=== PATIENT | male | born 1945 | race Caucasian/White ===

== ENCOUNTER 2021-12-30 14:45 | Inpatient (IN) ==
--- NOTE | 2021-12-30 15:13 | Emergency Department Note ---
SOB HPI General Chief Complaint: Shortness of Breath/Dyspnea Stated Complaint: shortness of breath Time Seen by Provider: 12/30/21 14:50 Source: patient Mode of arrival: wheelchair Limitations: no limitations History of Present Illness HPI Narrative: 76-year-old male who is a resident at [facility] with history of postpolio syndrome, chronic thoracic back pain, GERD, HTN, HLD, BPH, and adrenal insufficiency on chronic fludrocortisone presents today for increased anxiety and shortness of breath. He went to express care and was noted to be tachypneic, so was sent to the ER for evaluation. He is a poor historian and I obtained some of his history from his nursing care facility. Staff notes that he has been more anxious than usual over the last 4 weeks with increased agitation. Today's saturations are noted to be 91% on room air. He is nonambulatory and uses an electric wheelchair. Nursing states that he has been transferring independently without issue. He has not been tested for COVID as they do not check regularly unless patient's symptomatic. Kehinde ALEGRIA DNR. Patient denies F/C/S. Denies dysuria. Has chronic constipation which is unchanged. He notes that he feels more short of breath when laying flat, just feels like he cannot get air. His sister is at the bedside notes that he appears weaker. Related Data Home Medications Medication Instructions Recorded Confirmed aspirin 81 mg tablet,delayed 81 mg PO QDAY 06/22/15 10/24/20 release ferrous sulfate 325 mg (65 mg 325 mg PO .once daily 06/22/15 10/24/20 iron) tablet methocarbamol 750 mg tablet 1 tab PO BID PRN Pain 12/30/21 12/30/21 [id number] 250 mg-dha 90 1 cap PO DAILY 12/30/21 12/30/21 mg-epa 160 [id number] capsule (Ocuvite Adult 50 Plus) sennosides 8.6 mg tablet (Senokot) 1 tab PO DAILY PRN Constipation 12/30/21 12/30/21 vitamin B complex 1 tab PO QAM 12/30/21 12/30/21 Previous Rx's Medication Instructions Recorded Lift Chair #1 ea 10/14/16 diclofenac sodium 1 % topical gel See Rx Instructions topical 03/06/17 (Voltaren) .COMPLEX PRN pain #100 grams shower chair with adjustable legs #1 ea 10/22/17 wheelchair #1 ea 10/22/17 esomeprazole magnesium 40 mg See Dose Instructions PO .COMPLEX 11/09/17 capsule,delayed release #90 caps dutasteride 0.5 mg capsule 0.5 mg PO QDAY #90 caps 11/12/17 cholecalciferol (vitamin D3) 50 2,000 unit PO BID #180 caps 11/25/17 mcg (2,000 unit) capsule celecoxib 200 mg capsule 200 mg PO QDAY #90 caps 12/10/17 amlodipine 10 mg-benazepril 40 mg 1 cap PO QDAY #90 caps 12/21/17 capsule metoprolol succinate 100 mg 100 mg PO QDAY #90 tabs 12/21/17 tablet,extended release 24 hr trazodone 50 mg tablet 25 mg PO QHS #15 tabs 01/06/18 fludrocortisone 0.1 mg tablet 0.2 mg PO QDAY #180 tabs 05/20/18 hydrocodone 7.5 mg-acetaminophen 1 tab PO Q6H PRN pain #120 tabs 05/20/18 325 mg tablet cyclobenzaprine 10 mg tablet 10 mg PO TID PRN muscle spasm #15 10/12/20 tabs Allergies Allergy/AdvReac Type Severity Reaction Status Date / Time aripiprazole [From [facility]] AdvReac Unknown Unknown Verified 12/30/21 14:48 Review of Systems ROS ROS Narrative: Narrative: All systems ED: reviewed and negative except as stated. [facility] Narrative Patient History Narrative: Narrative: Medical/Surgical/Family History All Active Problems (Updated 12/30/21 @ 18:21 by Irais Vazquez PA-C) Acute hypokalemia (Acute) Acute hyponatremia (Acute) Weakness (Acute) Hypokalemia (Acute) Hyponatremia (Acute) Hypercapnic respiratory failure (Acute) Osteoporosis (Chronic) Thoracic back pain (Acute) Low back pain (Acute) Difficulty walking (Chronic) Arthritis (Chronic) Emphysema lung (Chronic) Osteoarthritis (Chronic) Gastritis (Chronic) GERD without esophagitis (Chronic) Chronic pain (Chronic) Post-polio syndrome (Chronic) Vitamin D deficiency (Chronic) Other specified disorders of adrenal glands (Chronic) Iron deficiency anemia (Chronic) Insomnia (Chronic) Macular degeneration (Chronic) COVID-19 (Chronic ~03/31/20) Fall (Chronic) Compression fracture (Chronic) Back pain (Chronic) Abnormal laboratory test (Chronic) Acute thoracic myofascial strain (Chronic) Constipation (Chronic) Onychomycosis (Chronic) Scoliosis (Chronic) Osteoarthrosis, generalized, involving multiple sites (Chronic) Hypertension, essential (Chronic) Hyperlipidemia (Chronic) Gastritis, alcoholic (Chronic) Benign prostatic hypertrophy with lower urinary tract symptoms (LUTS) (Chronic) 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) Adrenal gland disorder (Chronic) Medical History Adrenal gland disorder Arthritis Back pain Benign prostatic hypertrophy with lower urinary tract symptoms (LUTS) Chronic pain Compression fracture COVID-19 (~03/31/20) Difficulty walking Emphysema lung Fall Gastritis Gastritis, alcoholic GERD without esophagitis Hyperlipidemia Hypertension, essential Insomnia Iron deficiency anemia Iron deficiency anemia secondary to blood loss (chronic) Low back pain Macular degeneration Onychomycosis Osteoarthritis Osteoarthrosis, generalized, involving multiple sites Osteoporosis Other specified disorders of adrenal glands Post-polio limb muscle weakness Post-polio syndrome Scoliosis Thoracic back pain Vitamin D deficiency Surgical History History of left hip replacement Hx of spinal fusion thoracic Family History Aunt Malignant neoplasm of lung Family history of cardiac disorder Mother Family history of cardiac disorder Dementia, Onset Age: 58 cascular Hypertension Brother Degeneration of intervertebral disc Other Essential hypertension Social History Smoking Status: Former smoker Alcohol Intake Frequency: holiday/special occasion only Substance Use: does not use Exam Narrative Narrative: Narrative: General Limitations: no limitations Course Course Course Narrative: 76-year-old male presents for shortness of breath and weakness Reevaluation(s) Reevaluation #1: Obtain basic labs, chest x-ray, EKG Check COVID and influenza Reevaluation #2: Chem-8 with a potassium less than 2.0. Sodium is 124. No leukocytosis on his CBC. Chest x-ray negative with baseline chronic findings. COVID and influenza are negative Vital Signs Vital signs: Vital Signs Temperature 97.0 F 12/30/21 14:46 Pulse Rate 92 H 12/30/21 14:46 Respiratory Rate 20 12/30/21 14:46 Blood Pressure 133/78 12/30/21 14:46 Pulse Oximetry (%) 98 12/30/21 14:46 Oxygen Delivery Method 12/30/21 14:46 Temperature 97.0 F 12/30/21 14:46 Pulse Rate 88 12/30/21 17:35 Respiratory Rate 29 H 12/30/21 17:35 Blood Pressure 135/101 12/30/21 17:31 Pulse Oximetry (%) 94 12/30/21 17:35 Oxygen Delivery Method 12/30/21 14:46 MDM MDM Narrative Medical decision making narrative: Hypokalemia Hyponatremia Weakness Shortness of breath I reached out to hospitalist for admission. We will give his scheduled hydrocodone dose now. He is received 40 mEq of IV potassium and 40 mEQ of oral potassium, as well as 1 L of normal saline prior to admission. Lab Data Result diagrams: 12/30/21 15:27 Labs: Lab Results 12/30/21 12/30/21 12/30/21 Range/Units 15:27 16:44 16:50 WBC 9.6 (4.5-11.0) K/mcL RBC 4.52 L (4.63-6.08) M/mcL Hgb 14.8 (13.7-17.5) g/dL Hct 40.2 (40.1-51.0) % POC Hct 45.0 (41-55) MCV 88.9 (80.0-100.0) fL MCH 32.7 (26.0-34.0) pg MCHC 36.8 H (31.0-36.0) g/dL RDW 11.5 (11.5-14.5) % Plt Count 246 (140-440) K/mcL MPV 8.8 (7.4-10.4) fL Immature Gran % (Auto) 0.3 (0.0-0.5) % Neut % (Auto) 75.9 (38.0-78.0) % Lymph % (Auto) 14.5 L (15.5-49.0) % Love % (Auto) 8.1 (1.0-12.0) % Eos % (Auto) 0.8 (0.0-7.0) % Baso % (Auto) 0.4 (0.0-2.0) % Lymph # (Auto) 1.39 L (1.50-4.80) K/mcL Love # (Auto) 0.78 (0.10-0.90) K/mcL Eos # (Auto) 0.08 (0.00-0.70) K/mcL Baso # (Auto) 0.04 (0.00-0.30) K/mcL Immature Gran # 0.03 (0.00-0.05) K/mcl Absolute Neutrophils 7.29 (1.80-8.00) K/mcL POC VBG pH 7.58 H (7.32-7.42) POC VBG pCO2 at Temp 62.3 H* (41-51) POC VBG pO2 54 H (25-40) POC VBG HCO3 58.2 H* (24-28) POC VBG Total CO2 > 50.0 H* (25-29) POC Venous O2 Sat 90.0 H (40-70) POC VBG Base Excess > 30.0 H* (-2-2) VBG Lactic Acid 0.9 (0.5-2) POC Sodium 124 L (133-145) POC Potassium < 2.0 L* (3.3-5.1) POC Chloride 66 L (96-108) POC Total CO2 > 50.0 H* (22-30) POC BUN 8 (6-20) POC Creatinine 0.4 L (0.6-1.2) POC Glucose 112 H (70-105) POC WB Ioniz Calcium 1.00 L (1.16-1.32) ED POC Tests ED POC Tests: SAVANNAH - Influenza A Negative SAVANNAH - Influenza B Negative SAVANNAH - SARS Antigen Negative Discharge Plan Patient/Caregiver Discharge Instructions Pt seen by BAND DIRECTOR/PA only: Yes Clinical Impression: Acute hypokalemia, Acute hyponatremia, Weakness Patient Disposition: Xfer As Inpt ([facility]) Condition: Fair Follow up with: Antolin Young MD [Primary Care Provider] - Prescriptions: No Action diclofenac sodium [Voltaren] 1 % gel See Rx Instructions TOPICAL .COMPLEX PRN (Reason: pain) Qty: 100 12RF Dose Instruction: Apply TOPICAL BID PRN; apply to single elbow, wrist or hand; gently massage into area; for hand includes palm/fingers/back of hand Rx Instructions: Apply TOPICAL BID PRN. (DME) wheelchair device See Dose Instructions .ROUTE .MEDSUPPLY Qty: 1 0RF Dose Instruction: As directed Rx Instructions: use daily for ambulation (DME) shower chair with adjustable legs Qty: 1 0RF Dose Instruction: As directed Rx Instructions: for use in shower to ensure proper hygiene is achieved esomeprazole magnesium 40 mg capsule,delayed release(DR/EC) See Dose Instructions PO .COMPLEX Qty: 90 3RF Dose Instruction: Take one capsule PO once daily Rx Instructions: Take one capsule PO once daily dutasteride 0.5 mg capsule 0.5 mg PO QDAY Qty: 90 3RF cholecalciferol (vitamin D3) 2,000 unit capsule 2,000 unit PO BID Qty: 180 3RF Rx Instructions: administer with meals celecoxib 200 mg capsule 200 mg PO QDAY Qty: 90 3RF amlodipine-benazepril 10-40 mg capsule 1 cap PO QDAY Qty: 90 3RF metoprolol succinate 100 mg tablet extended release 24 hr 100 mg PO QDAY Qty: 90 3RF trazodone 50 mg tablet 25 mg PO QHS Qty: 15 12RF hydrocodone-acetaminophen 7.5-325 mg tablet 1 tab PO Q6H PRN (Reason: pain) Qty: 120 0RF fludrocortisone 0.1 mg tablet 0.2 mg PO QDAY Qty: 180 0RF aspirin 81 mg tablet,delayed release (DR/EC) 81 mg PO QDAY ferrous sulfate 325 mg (65 mg iron) tablet 325 mg PO .once daily Rx Instructions: 325 mg PO .once daily (DME) Lift Chair Qty: 1 0RF Rx Instructions: use to be able to rise from seated position cyclobenzaprine 10 mg tablet 10 mg PO TID PRN (Reason: muscle spasm) Qty: 15 0RF sennosides [Senokot] 8.6 mg tablet 1 tab PO DAILY PRN (Reason: Constipation) Label Comments: [NO ORIGINAL SIG] methocarbamol 750 mg tablet 1 tab PO BID PRN (Reason: Pain) Label Comments: [NO ORIGINAL SIG] vitamin B complex Tablet 1 tab PO QAM Label Comments: [NO ORIGINAL SIG] Ocuvite Adult 50 Plus 250 mg (90 mg-160 mg) capsule 1 cap PO DAILY Label Comments: [NO ORIGINAL SIG]
[2021-12-30 16:14] LABS: Basophils # (Auto) 0.04 K/mcL (0.00-0.30); Basophils % (Auto) 0.4 % (0.0-2.0); Eosinophils # (Auto) 0.08 K/mcL (0.00-0.70); Eosinophils % (Auto) 0.8 % (0.0-7.0); Hematocrit 40.2 % (40.1-51.0); Hemoglobin 14.8 g/dL (13.7-17.5); Lymphocytes # (Auto) 1.39 K/mcL (1.50-4.80); Lymphocytes % (Auto) 14.5 % (15.5-49.0); Mean Cell Volume 88.9 fL (80.0-100.0); Mean Corpuscular HGB Conc 36.8 g/dL (31.0-36.0); Mean Platelet Volume 8.8 fL (7.4-10.4); Monocytes # (Auto) 0.78 K/mcL (0.10-0.90); Monocytes % (Auto) 8.1 % (1.0-12.0); Neutrophils % (Auto) 75.9 % (38.0-78.0); Platelet Count 246 K/mcL (140-440); RBC 4.52 M/mcL (4.63-6.08); Red Cell Distribution Width 11.5 % (11.5-14.5); WBC 9.6 K/mcL (4.5-11.0)
--- NOTE | 2021-12-30 16:18 | XRay Report ---
CLINICAL INFORMATION: Dyspnea COMPARISON: 03/21/2021. TECHNIQUE: Portable FINDINGS: Severe complex scoliotic curve distorts the thoracic cavity-as previously seen. Moderate hiatal hernia is stable The heart size, remaining mediastinum and pulmonary vessels are unremarkable. The lungs are clear. There are no effusions. The bones and soft tissues are within normal limits. IMPRESSION: No acute disease. Severe complex scoliotic curve severely distorts the thoracic cavity resulting in restrictive lung disease. This is obviously a chronic finding Moderate hiatal hernia Interpreted and Authenticated by: Dayne Olsen 12/30/21
[2021-12-30 16:53] LABS: POC Blood Urea Nitrogen 8 (6-20); POC CO2 > 50.0 (22-30); POC Chloride 66 (96-108); POC Creatinine 0.4 (0.6-1.2); POC Glucose, Random 112 (70-105); POC Potassium < 2.0 (3.3-5.1); POC Sodium 124 (133-145)
[2021-12-30] MEDS ORDERED: 0.9 % SODIUM CHLORIDE 1,000 ML IV ONE (16:55)
[2021-12-30] MEDS ORDERED: POTASSIUM CHLORIDE 40 MEQ in DEXTROSE 5% IN WATER 500 ML IV ONE (16:55)
[2021-12-30] MEDS ORDERED: POTASSIUM CHLORIDE 20 MEQ TABLET PO ONE (16:56)
[2021-12-30] MEDS ORDERED: HYDROCODONE/APAP 7.5/325MG TABLET PO ONE (17:08)
[2021-12-30] MEDS ORDERED: ONDANSETRON 4 MG/2 ML VIAL IV PRN (17:47)
--- NOTE | 2021-12-30 18:13 | Internal Med History&Physical ---
HPI History of Present Illness Patient information: Note initiated : 12/30/21 at 6:05 pm Service Date, if different from initiated Date: [] Patient: Demarcus Bryan 76 y/o M admitted on for shortness of breath. Chief Complaint: [Weakness and abnormal breathing] Chief complaint: Weakness and abnormal breathing History of present illness: Mr. Bryan is a 76 year old M with a complex past medical history significant for severe scoliosis, emphysema, postpolio syndrome who is wheelchair dependent, and adrenal insufficiency who presents to the hospital with generalized weakness and irregular breathing pattern. The patient states that his breathing became worse after he had a fall in September. He has known severe chest wall deformity which is compounded by a known hiatal hernia. A chest x-ray was obtained which did not reveal any infiltrate, mass, or collapse of the lung. The patient is able to oxygenate and his O2 saturation is 98% on room air. Of note he was found to have severe electrolyte deficiencies including hypokalemia with a potassium less than 2 and hyponatremia with a sodium of 124. This was corrected in the ER. The hospitalist service was asked admit the patient for further management and evaluation. Review of Systems All systems: reviewed and no additional remarkable complaints except as stated Constitutional Constitutional: Present as per HPI EENT Eyes: Present as per HPI; Absent blurry vision Cardiovascular Cardiovascular: Present as per HPI; Absent chest pain, dyspnea, dyspnea on exertion, leg edema or palpatations Respiratory Respiratory: Present as per HPI; Absent cough, dyspnea, dyspnea on exertion, wheezing or stridor Gastrointestinal Gastrointestinal: Present as per HPI; Absent abdominal pain, diarrhea, dysphagia, hematemesis, melena, nausea or vomiting Musculoskeletal Musculoskeletal: Present as per HPI; Absent joint swelling, limited range of motion, muscle cramps, muscle weakness or myalgias Integumentary Integumentary: Present as per HPI; Absent erythema, new lesions, rash or wounds Neurological Neurological: Present as per HPI; Absent abnormal gait, behavioral changes, focal weakness, headache(s), loss of vision, numbness, sensory deficit or syncope Endocrine Endocrine: Absent change in body appearance, fatigue or heat intolerance Hematologic/Lymphatic Hematologic/Lymphatic: Present as per HPI PFSH PFSH All Active Problems (Updated 12/30/21 @ 18:09 by Daria Hankins MD) Hypokalemia (Acute) Hyponatremia (Acute) Hypercapnic respiratory failure (Acute) Osteoporosis (Chronic) Thoracic back pain (Acute) Low back pain (Acute) Difficulty walking (Chronic) Arthritis (Chronic) Emphysema lung (Chronic) Osteoarthritis (Chronic) Gastritis (Chronic) GERD without esophagitis (Chronic) Chronic pain (Chronic) Post-polio syndrome (Chronic) Vitamin D deficiency (Chronic) Other specified disorders of adrenal glands (Chronic) Iron deficiency anemia (Chronic) Insomnia (Chronic) Macular degeneration (Chronic) COVID-19 (Chronic ~03/31/20) Fall (Chronic) Compression fracture (Chronic) Back pain (Chronic) Abnormal laboratory test (Chronic) Acute thoracic myofascial strain (Chronic) Constipation (Chronic) Onychomycosis (Chronic) Scoliosis (Chronic) Osteoarthrosis, generalized, involving multiple sites (Chronic) Hypertension, essential (Chronic) Hyperlipidemia (Chronic) Gastritis, alcoholic (Chronic) Benign prostatic hypertrophy with lower urinary tract symptoms (LUTS) (Chronic) 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) Adrenal gland disorder (Chronic) Medical History Adrenal gland disorder Arthritis Back pain Benign prostatic hypertrophy with lower urinary tract symptoms (LUTS) Chronic pain Compression fracture COVID-19 (~03/31/20) Difficulty walking Emphysema lung Fall Gastritis Gastritis, alcoholic GERD without esophagitis Hyperlipidemia Hypertension, essential Insomnia Iron deficiency anemia Iron deficiency anemia secondary to blood loss (chronic) Low back pain Macular degeneration Onychomycosis Osteoarthritis Osteoarthrosis, generalized, involving multiple sites Osteoporosis Other specified disorders of adrenal glands Post-polio limb muscle weakness Post-polio syndrome Scoliosis Thoracic back pain Vitamin D deficiency Surgical History History of left hip replacement Hx of spinal fusion thoracic Family History Aunt Malignant neoplasm of lung Family history of cardiac disorder Mother Family history of cardiac disorder Dementia, Onset Age: 58 cascular Hypertension Brother Degeneration of intervertebral disc Other Essential hypertension Social History (Updated 10/25/20 @ 12:13 by Shannan Webster) marital status: single education level: college occupational status: employed occupation: [employer] Worker smoking status: Never smoker alcohol intake frequency: holiday/special occasion only substance use type: does not use MEDS/ALLERGIES Home Medications and Allergies Home Medications Medication Instructions Recorded Confirmed Type aspirin 81 mg tablet,delayed 81 mg PO QDAY 06/22/15 10/24/20 History release ferrous sulfate 325 mg (65 mg 325 mg PO .once daily 06/22/15 10/24/20 History iron) tablet terbinafine HCl 250 mg tablet 250 mg PO QDAY #42 tabs 06/22/15 10/24/20 Rx Lift Chair #1 ea 10/14/16 10/24/20 Rx diclofenac sodium 1 % topical gel See Rx Instructions topical 03/06/17 10/24/20 Rx (Voltaren) .COMPLEX PRN pain #100 grams shower chair with adjustable legs #1 ea 10/22/17 10/24/20 Rx wheelchair #1 ea 10/22/17 10/24/20 Rx esomeprazole magnesium 40 mg See Dose Instructions PO .COMPLEX 11/09/17 10/24/20 Rx capsule,delayed release #90 caps dutasteride 0.5 mg capsule 0.5 mg PO QDAY #90 caps 11/12/17 10/24/20 Rx cholecalciferol (vitamin D3) 50 2,000 unit PO BID #180 caps 11/25/17 10/24/20 Rx mcg (2,000 unit) capsule celecoxib 200 mg capsule 200 mg PO QDAY #90 caps 12/10/17 10/24/20 Rx amlodipine 10 mg-benazepril 40 mg 1 cap PO QDAY #90 caps 12/21/17 10/24/20 Rx capsule metoprolol succinate 100 mg 100 mg PO QDAY #90 tabs 12/21/17 10/24/20 Rx tablet,extended release 24 hr triamterene 37.5 1 tab PO QDAY #90 tabs 12/21/17 10/24/20 Rx mg-hydrochlorothiazide 25 mg tablet trazodone 50 mg tablet 25 mg PO QHS #15 tabs 01/06/18 10/24/20 Rx lisinopril 20 mg tablet 20 mg PO QDAY #90 tabs 01/14/18 10/24/20 Rx prednisone 1 mg tablet 2 mg PO QDAY #60 tabs 04/30/18 10/24/20 Rx fludrocortisone 0.1 mg tablet 0.2 mg PO QDAY #180 tabs 05/20/18 10/24/20 Rx hydrocodone 7.5 mg-acetaminophen 1 tab PO Q6H PRN pain #120 tabs 05/20/18 10/24/20 Rx 325 mg tablet cyclobenzaprine 10 mg tablet 10 mg PO TID PRN muscle spasm #15 10/12/20 10/24/20 Rx tabs Allergies Allergy/AdvReac Type Severity Reaction Status Date / Time aripiprazole [From [facility]] AdvReac Unknown Unknown Verified 12/30/21 14:48 EXAM Constitutional Vitals: Temp Pulse Resp BP Pulse Ox O2 Del Method 97.0 F 88 29 H 135/101 94 12/30/21 14:46 12/30/21 17:35 12/30/21 17:35 12/30/21 17:31 12/30/21 17:35 12/30/21 14:46 General appearance: average body habitus Head Head exam: Present atraumatic, normal inspection and normocephalic Eye Eye exam: Present EOMI, normal appearance and PERRL; Absent conjunctival injection ENT ENT exam: Present normal exam; Absent mucous membranes dry Neck Neck exam: Present full ROM; Absent lymphadenopathy Respiratory Respiratory exam: Present accessory muscle use and decreased breath sounds; A bsent normal respiratory exam, CTAB, respiratory distress or wheezes Expanded Respiratory Exam Location: decreased breath sounds: Left and Right Cardiovascular Cardiovascular exam: Present normal rate and rhythm and RRR; Absent JVD GI/Abdominal GI/Abdominal exam: Present normal bowel sounds and soft; Absent diminished bowel sounds, distended, guarding, mass, rebound or tenderness Neurological Exam Neurological exam: Present alert, CN II-XII intact and oriented X3 Psychiatric Psychiatric exam: Present normal affect and normal mood Skin Skin exam: Present intact and warm; Absent erythema, pallor, petechiae or rash DATA Data Completed and Pending Labs: Labs from last 24 hours 12/30/21 12/30/21 12/30/21 16:50 16:44 15:27 WBC 9.6 RBC 4.52 L Hgb 14.8 Hct 40.2 POC Hct 45.0 MCV 88.9 MCH 32.7 MCHC 36.8 H RDW 11.5 Plt Count 246 MPV 8.8 Immature Gran % (Auto) 0.3 Neut % (Auto) 75.9 Lymph % (Auto) 14.5 L Wise % (Auto) 8.1 Eos % (Auto) 0.8 Baso % (Auto) 0.4 Lymph # (Auto) 1.39 L Wise # (Auto) 0.78 Eos # (Auto) 0.08 Baso # (Auto) 0.04 Immature Gran # 0.03 Absolute Neutrophils 7.29 POC VBG pH 7.58 H POC VBG pCO2 at Temp 62.3 H* POC VBG pO2 54 H POC VBG HCO3 58.2 H* POC VBG Total CO2 > 50.0 H* POC Venous O2 Sat 90.0 H POC VBG Base Excess > 30.0 H* VBG Lactic Acid 0.9 POC Sodium 124 L POC Potassium < 2.0 L* POC Chloride 66 L POC Total CO2 > 50.0 H* POC BUN 8 POC Creatinine 0.4 L POC Glucose 112 H POC WB Ioniz Calcium 1.00 L A/P Assessment and plan (1) Osteoporosis: Status: Chronic (2) Chronic pain: Status: Chronic (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 He will have his potassium aggressively repleted and he has been receiving normal saline for his hyponatremia. His BMP will be checked in the morning. Of note he has severe chest wall deformity and possibly underlying neuromuscular component resulting in chronic ventilatory failure. He has significant metabolic alkalosis with chronic respiratory acidosis. He may benefit from intermittent BiPAP. He would benefit from a pulmonary outpatient follow-up. Time Spent With Patient Time: Total time spent is greater than 50% in coordination of care (as documented) at patient's floor/unit and/or counseling patient: Total time spent with greater than 50% in coordination of care (as documented) at patient's floor/unit and/or counseling patient:: Greater than 70 minutes
[2021-12-30] MEDS ORDERED: NON FORMULARY MEDICATION 1 DOSE MISCELL (Esomeprazole Magnesium 40 mg capsule,delayed rele PO SCH (18:15)
[2021-12-30 20:35] LABS: Appearance,Urine Clear (Clear); Bilirubin,Urine Negative (Negative); Color,Urine Yellow; Culture Indicated,Urine No; Glucose,Urine (UA) Negative (Negative); Ketones,Urine 15 mg/dL mg/dL (Negative); Leukocyte Esterase,Urine Negative /uL (Negative); Mucus,Urine FEW /hpf; Nitrate,Urine Negative (Negative); PH,Urine 7.5 (5.0-9.0); Protein,Urine Negative (Negative); Specific Gravity,Urine 1.015 (1.000-1.035); Urine Blood Trace-lysed ery/mcL (Negative); Urine RBC 3 /hpf (0-3); Urine Squamous Epithelial Cell 0 /hpf (0-4); Urine WBC < 1 /hpf (0-4); Urobilinogen,Urine Normal
[2021-12-30] MEDS: 0.9 % SODIUM CHLORIDE 10 ML SYRINGE IV SCH (21:08)
[2021-12-30] MEDS: DOCUSATE SODIUM 100 MG CAPSULE PO SCH (21:08)
[2021-12-30] MEDS: HYDROCODONE/APAP 7.5/325MG TABLET PO PRN (21:08)
[2021-12-30] MEDS: SENNOSIDES 1 TABLET PO SCH (21:08)
[2021-12-31] MEDS: HYDROCODONE/APAP 7.5/325MG TABLET PO PRN ×2 (04:30→17:10)
[2021-12-31] MEDS: 0.9 % SODIUM CHLORIDE 10 ML SYRINGE IV SCH ×3 (05:55→21:03)
[2021-12-31 07:38] LABS: Blood Urea Nitrogen 5 mg/dL (8-23); Calcium 9.6 mg/dL (8.6-10.4); Carbon Dioxide 49 mmol/L (22-30); Chloride 75 mmol/L (96-108); Glomerular Filtration Rate 154; Glucose 106 mg/dL (70-105)
[2021-12-31] MEDS ORDERED: POTASSIUM CHLORIDE 20 MEQ TABLET PO ONE (07:53)
[2021-12-31] MEDS: FLUDROCORTISONE 0.1 MG TABLET PO SCH (09:07)
[2021-12-31] MEDS: DOCUSATE SODIUM 100 MG CAPSULE PO SCH ×2 (09:07→21:03)
[2021-12-31] MEDS: PANTOPRAZOLE 40 MG TABLET PO SCH (09:07)
[2021-12-31] MEDS: ASPIRIN 81 MG TAB.CHEW PO SCH (09:08)
[2021-12-31] MEDS: ENOXAPARIN 40 MG/0.4 ML SYRINGE SQ SCH (09:08)
[2021-12-31] MEDS: METOPROLOL SUCCINATE 50 MG TAB.XL.24H PO SCH (09:08)
[2021-12-31] MEDS ORDERED: POTASSIUM CHLORIDE 20 MEQ PACKET PO SCH (10:50)
--- NOTE | 2021-12-31 11:17 | Internal Med Progress Note ---
SUBJECTIVE Subjective Patient information: Note initiated : 12/31/21 at 11:15 am Service Date, if different from initiated Date: [] Patient: Demarcus Bryan 76 y/o M admitted on 12/30/21 for shortness of breath. Chief Complaint: [Resp distress, electrolyte derangements] Principal diagnosis: Chronic ventilatory failure Interval history: The patient was resting in bed while eating breakfast. His respiratory status remains unchanged. We discussed goals of care and the possibility of hospice. The patient was open to this. Discussed the case with the RN. Constitutional Vitals: Vital Signs Temp Pulse Resp BP Pulse Ox O2 Del Method 98.3 F 103 H 24 H 143/82 94 12/31/21 08:01 12/30/21 23:33 12/31/21 08:01 12/31/21 08:01 12/30/21 23:33 12/30/21 18:33 Period Temp Pulse Resp BP Sys/Le Pulse Ox O2 Del Method O2 Flow Rate Last 24 Hr 97.0 F-98.7 F 33-144 19-37 116-147/64-129 82-100 Room Air-Room Air Intake and Output 12/30/21 12/31/21 12/31/21 21:59 05:59 13:59 Intake Total 1000 720 Output Total 351 152 Balance 649 568 Weight 48.988 kg Intake & Output: Intake & Output 12/30/21 12/31/21 12/31/21 21:59 05:59 13:59 Intake Total 1000 720 Output Total 351 152 Balance 649 568 Weight 48.988 kg Intake: IV 1000 520 Sodium Chloride 0.9% 1,000 ml @ 1000 Wide Open IV BOLUS ONE Rx#: [id number] Potassium Chloride 40 Meq In 520 Dextrose 5% in Water 500 ml @ 130 mls/hr IV ONCE ONE Rx#: [id number] Oral 200 Output: Void Amount 350 150 # of times incontinent of urine 1 2 Other: Urine Appearance Clear Clear Urine Color Bright Yellow Bright Yellow Stool Size Smear Stool Color Brown Stool Consistency Soft Head Head exam: Present atraumatic and normal inspection Eye Eye exam: Present normal appearance ENT ENT exam: Present mucous membranes moist, normal exam and normal external ear exam Neck Neck exam: Present normal inspection Respiratory Respiratory exam: Present accessory muscle use and prolonged expiratory phase Expanded Respiratory Exam Location: decreased breath sounds: Left and Right Cardiovascular Cardiovascular exam: Present normal rate and rhythm GI/Abdominal GI/Abdominal exam: Present normal bowel sounds Back Exam Back exam: Present normal inspection Neurological Exam Neurological exam: Present alert and oriented X3 Skin Skin exam: Present intact and warm OBJ DATA Labs CBC & Chem 7: 12/30/21 15:27 12/31/21 05:12 Labs: Abnormal Lab Results 12/31/21 12/30/21 12/30/21 05:12 19:33 16:50 RBC MCHC Lymph % (Auto) Lymph # (Auto) POC VBG pH POC VBG pCO2 at Temp POC VBG pO2 POC VBG HCO3 POC VBG Total CO2 POC Venous O2 Sat POC VBG Base Excess POC Sodium 124 L Sodium 131 L POC Potassium < 2.0 L* Potassium 2.1 L* POC Chloride 66 L Chloride 75 L Carbon Dioxide 49 H* POC Total CO2 > 50.0 H* Anion Gap 7.0 L BUN 5 L Creatinine 0.2 L POC Creatinine 0.4 L Glucose 106 H POC Glucose 112 H POC WB Ioniz Calcium 1.00 L Urine Ketones 15 mg/dl A Urine Occult Blood Trace-lysed A Urine Mucus Few A 12/30/21 12/30/21 16:44 15:27 RBC 4.52 L MCHC 36.8 H Lymph % (Auto) 14.5 L Lymph # (Auto) 1.39 L POC VBG pH 7.58 H POC VBG pCO2 at Temp 62.3 H* POC VBG pO2 54 H POC VBG HCO3 58.2 H* POC VBG Total CO2 > 50.0 H* POC Venous O2 Sat 90.0 H POC VBG Base Excess > 30.0 H* POC Sodium Sodium POC Potassium Potassium POC Chloride Chloride Carbon Dioxide POC Total CO2 Anion Gap BUN Creatinine POC Creatinine Glucose POC Glucose POC WB Ioniz Calcium Urine Ketones Urine Occult Blood Urine Mucus Meds: Medications Hydrocodone Bitart/Acetaminophen (Hydrocodone/Apap 7.5/325mg Tablet) 1 tab PO Q6HP PRN PRN Reason: pain Last Admin: 12/31/21 04:30 Dose: 1 tab Aspirin (Aspirin 81 Mg Tab.Chew) 81 mg PO QDAY [facility] Last Admin: 12/31/21 09:08 Dose: 81 mg Docusate Sodium (Docusate Sodium 100 Mg Capsule) 100 mg PO BID [facility] Last Admin: 12/31/21 09:07 Dose: 100 mg Enoxaparin Sodium (Enoxaparin 40 Mg/0.4 Ml Syringe) 40 mg SQ DAILY [facility] Last Admin: 12/31/21 09:08 Dose: 40 mg Fludrocortisone Acetate (Fludrocortisone 0.1 Mg Tablet) 0.2 mg PO QDAY [facility] Last Admin: 12/31/21 09:07 Dose: 0.2 mg Metoprolol Succinate (Metoprolol Succinate 50 Mg Tab.Xl.24h) 100 mg PO QDAY [facility] Last Admin: 12/31/21 09:08 Dose: 100 mg Ondansetron HCl (Ondansetron 4 Mg/2 Ml Vial) 4 mg IV Q6HP PRN PRN Reason: Nausea And Vomiting Pantoprazole Sodium (Pantoprazole 40 Mg Tablet) 40 mg PO QAMAC [facility] Last Admin: 12/31/21 09:07 Dose: 40 mg Potassium Chloride (Potassium Chloride 20 Meq Packet) 80 meq PO 1050 [facility] Stop: 12/31/21 12:00 Senna (Sennosides 1 Tablet) 2 tab PO HS [facility] Last Admin: 12/30/21 21:08 Dose: 2 tab Sodium Chloride (0.9 % Sodium Chloride 10 Ml Syringe) 10 ml IV Q8 [facility] Last Admin: 12/31/21 05:55 Dose: 10 ml A/P Assessment and plan (1) Osteoporosis: Status: Chronic (2) Chronic pain: Status: Chronic (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 He will have his potassium aggressively repleted and he has been receiving normal saline for his hyponatremia. His BMP will be checked in the morning. Of note he has severe chest wall deformity and possibly underlying neuromuscular component resulting in chronic ventilatory failure. He has significant metabolic alkalosis with chronic respiratory acidosis. He may benefit from intermittent BiPAP. He would benefit from a pulmonary outpatient follow-up. 12/31: The patient has adrenal insufficiency and will continue to replete his electrolytes. We will trial BiPAP today for chronic ventilatory failure. Ongoing goals of care discussion for discharge with hospice. Time Spent With Patient Time: Total time spent is greater than 50% in coordination of care (as documented) at patient's floor/unit and/or counseling patient: Total time spent with greater than 50% in coordination of care (as documented) at patient's floor/unit and/or counseling patient:: 25 - 35 minutes
[2021-12-31] MEDS ORDERED: LIDOCAINE PATCH TOPICAL PRN (11:24)
[2021-12-31 13:51] LABS: Blood Urea Nitrogen 6 mg/dL (8-23); Calcium 9.6 mg/dL (8.6-10.4); Carbon Dioxide 49 mmol/L (22-30); Chloride 77 mmol/L (96-108); Glomerular Filtration Rate 116; Glucose 116 mg/dL (70-105)
[2021-12-31] MEDS: SENNOSIDES 1 TABLET PO SCH (21:03)
[2021-12-31] MEDS: VITAMIN D3 25 MCG TABLET PO SCH (21:03)
[2022-01-01] MEDS: HYDROCODONE/APAP 7.5/325MG TABLET PO PRN ×3 (02:26→14:39)
[2022-01-01] MEDS: 0.9 % SODIUM CHLORIDE 10 ML SYRINGE IV SCH ×3 (06:33→21:36)
[2022-01-01] MEDS: PANTOPRAZOLE 40 MG TABLET PO SCH (06:52)
[2022-01-01 07:21] LABS: ALT/SGPT 17 U/L (<40); AST/SGOT 28 U/L (<40); Albumin 3.8 gm/dL (3.2-5.2); Albumin/Globulin Ratio 1.5 (1.0-2.3); Alkaline Phosphatase 89 U/L (39-117); Bilirubin,Direct 0.3 mg/dL (<0.3); Bilirubin,Total 0.8 mg/dL (0.1-1.0); Blood Urea Nitrogen 8 mg/dL (8-23); Calcium 9.5 mg/dL (8.6-10.4); Carbon Dioxide 41 mmol/L (22-30); Chloride 81 mmol/L (96-108); Globulin 2.6 gm/dL (2.2-3.7); Glomerular Filtration Rate 131; Glucose 106 mg/dL (70-105); Lactate Dehydrogenase 215 U/L (135-225); Triglycerides 55 mg/dL (<150); Uric Acid 2.7 mg/dL (2.5-8.0)
[2022-01-01] MEDS ORDERED: MAGNESIUM SULFATE 2 GM/50 ML BAG IV ONE (08:23)
[2022-01-01] MEDS: ENOXAPARIN 40 MG/0.4 ML SYRINGE SQ SCH (08:25)
[2022-01-01] MEDS: ASCORBIC ACID 500 MG TABLET PO SCH (08:25)
[2022-01-01] MEDS: METOPROLOL SUCCINATE 50 MG TAB.XL.24H PO SCH (08:26)
[2022-01-01] MEDS: FERROUS SULFATE 325 MG TABLET PO SCH (08:26)
[2022-01-01] MEDS: LISINOPRIL 20 MG TABLET PO SCH (08:26)
[2022-01-01] MEDS: ASPIRIN 81 MG TAB.CHEW PO SCH (08:26)
[2022-01-01] MEDS: ZINC SULFATE 50 MG CAPSULE PO SCH (08:26)
[2022-01-01] MEDS: VITAMIN D3 25 MCG TABLET PO SCH ×2 (08:26→21:36)
[2022-01-01] MEDS: FLUDROCORTISONE 0.1 MG TABLET PO SCH (08:27)
[2022-01-01] MEDS: amLODIPine 10 MG TABLET PO SCH (08:27)
[2022-01-01] MEDS: CELECOXIB 200 MG CAPSULE PO SCH (08:27)
[2022-01-01] MEDS: VITAMIN B COMPLEX 1 CAPSULE PO SCH (08:27)
[2022-01-01] MEDS: DUTASTERIDE 0.5 MG CAPSULE PO SCH (08:27)
[2022-01-01] MEDS: DOCUSATE SODIUM 100 MG CAPSULE PO SCH ×3 (08:27→21:33)
[2022-01-01] MEDS ORDERED: amLODIPine 10 MG TABLET PO SCH (09:00)
--- NOTE | 2022-01-01 09:20 | Internal Med Progress Note ---
SUBJECTIVE Subjective Patient information: Note initiated : 01/01/22 at 9:18 am Service Date, if different from initiated Date: [] Patient: Demarcus Bryan 76 y/o M admitted on 12/30/21 for shortness of breath. Chief Complaint: [Failure to thrive] Principal diagnosis: Chronic ventilatory failure Interval history: The patient will make a decision regarding hospice today. Discussed the case with RN. * He otherwise has no active complaints or concerns. Constitutional Vitals: Vital Signs Temp Pulse Resp BP Pulse Ox O2 Del Method 98.7 F 107 H 28 H 152/84 94 01/01/22 07:10 01/01/22 06:01 01/01/22 07:10 01/01/22 07:10 01/01/22 07:10 01/01/22 02:00 Period Temp Pulse Resp BP Sys/Le Pulse Ox O2 Del Method O2 Flow Rate Last 24 Hr 97.2 F-98.7 F 76-107 20-36 114-153/76-102 93-97 Room Air-Room Air Intake and Output 12/31/21 01/01/22 01/01/22 21:59 05:59 13:59 Intake Total 960 Output Total 3 4 Balance 957 -4 Weight 47.219 kg Intake & Output: Intake & Output 12/31/21 01/01/22 01/01/22 21:59 05:59 13:59 Intake Total 960 Output Total 3 4 Balance 957 -4 Weight 47.219 kg Intake: Oral 960 Output: # of times incontinent of urine 3 4 Other: Meal Dinner Percent of Meal Consumed 25% Feeding Ability Assist with Tray Set Up Stool Size Small Stool Color Brown Stool Consistency Soft # Voids 3 Head Head exam: Present atraumatic and normal inspection Eye Eye exam: Present normal appearance ENT ENT exam: Present mucous membranes moist, normal exam and normal external ear exam Neck Neck exam: Present normal inspection Respiratory Respiratory exam: Present normal respiratory exam Cardiovascular Cardiovascular exam: Present normal rate and rhythm GI/Abdominal GI/Abdominal exam: Present normal bowel sounds Back Exam Back exam: Present normal inspection Neurological Exam Neurological exam: Present alert and oriented X3 Skin Skin exam: Present intact and warm OBJ DATA Labs CBC & Chem 7: 12/30/21 15:27 01/01/22 05:58 Labs: Abnormal Lab Results 01/01/22 12/31/21 12/31/21 05:58 13:00 05:12 RBC MCHC Lymph % (Auto) Lymph # (Auto) POC VBG pH POC VBG pCO2 at Temp POC VBG pO2 POC VBG HCO3 POC VBG Total CO2 POC Venous O2 Sat POC VBG Base Excess POC Sodium Sodium 131 L 130 L 131 L POC Potassium Potassium 3.1 L 2.1 L* POC Chloride Chloride 81 L 77 L 75 L Carbon Dioxide 41 H* 49 H* 49 H* POC Total CO2 Anion Gap 4.0 L 7.0 L BUN 6 L 5 L Creatinine 0.3 L 0.4 L 0.2 L POC Creatinine Glucose 106 H 116 H 106 H POC Glucose POC WB Ioniz Calcium Magnesium 1.2 L Direct Bilirubin 0.3 H Urine Ketones Urine Occult Blood Urine Mucus 12/30/21 12/30/21 12/30/21 19:33 16:50 16:44 RBC MCHC Lymph % (Auto) Lymph # (Auto) POC VBG pH 7.58 H POC VBG pCO2 at Temp 62.3 H* POC VBG pO2 54 H POC VBG HCO3 58.2 H* POC VBG Total CO2 > 50.0 H* POC Venous O2 Sat 90.0 H POC VBG Base Excess > 30.0 H* POC Sodium 124 L Sodium POC Potassium < 2.0 L* Potassium POC Chloride 66 L Chloride Carbon Dioxide POC Total CO2 > 50.0 H* Anion Gap BUN Creatinine POC Creatinine 0.4 L Glucose POC Glucose 112 H POC WB Ioniz Calcium 1.00 L Magnesium Direct Bilirubin Urine Ketones 15 mg/dl A Urine Occult Blood Trace-lysed A Urine Mucus Few A 12/30/21 15:27 RBC 4.52 L MCHC 36.8 H Lymph % (Auto) 14.5 L Lymph # (Auto) 1.39 L POC VBG pH POC VBG pCO2 at Temp POC VBG pO2 POC VBG HCO3 POC VBG Total CO2 POC Venous O2 Sat POC VBG Base Excess POC Sodium Sodium POC Potassium Potassium POC Chloride Chloride Carbon Dioxide POC Total CO2 Anion Gap BUN Creatinine POC Creatinine Glucose POC Glucose POC WB Ioniz Calcium Magnesium Direct Bilirubin Urine Ketones Urine Occult Blood Urine Mucus Meds: Medications Hydrocodone Bitart/Acetaminophen (Hydrocodone/Apap 7.5/325mg Tablet) 1 tab PO Q6HP PRN PRN Reason: pain Last Admin: 01/01/22 08:26 Dose: 1 tab Amlodipine Besylate (Amlodipine 10 Mg Tablet) 10 mg PO DAILY [facility] Last Admin: 01/01/22 08:27 Dose: 10 mg Ascorbic Acid (Ascorbic Acid 500 Mg Tablet) 500 mg PO DAILY [facility] Last Admin: 01/01/22 08:25 Dose: 500 mg Aspirin (Aspirin 81 Mg Tab.Chew) 81 mg PO QDAY [facility] Last Admin: 01/01/22 08:26 Dose: 81 mg Celecoxib (Celecoxib 200 Mg Capsule) 200 mg PO QDAY [facility] Last Admin: 01/01/22 08:27 Dose: 200 mg Docusate Sodium (Docusate Sodium 100 Mg Capsule) 100 mg PO BID [facility] Last Admin: 01/01/22 08:27 Dose: 100 mg Dutasteride (Dutasteride 0.5 Mg Capsule) 0.5 mg PO QDAY [facility] Last Admin: 01/01/22 08:27 Dose: 0.5 mg Enoxaparin Sodium (Enoxaparin 40 Mg/0.4 Ml Syringe) 40 mg SQ DAILY [facility] Last Admin: 01/01/22 08:25 Dose: 40 mg Ferrous Sulfate (Ferrous Sulfate 325 Mg Tablet) 325 mg PO DAILY [facility] Last Admin: 01/01/22 08:26 Dose: 325 mg Fludrocortisone Acetate (Fludrocortisone 0.1 Mg Tablet) 0.2 mg PO QDAY [facility] Last Admin: 01/01/22 08:27 Dose: 0.2 mg Magnesium Sulfate (Magnesium Sulfate) 2 gm in 50 mls @ 25 mls/hr IV ONCE ONE Stop: 01/01/22 10:22 Last Admin: 01/01/22 08:48 Dose: 25 mls/hr Lidocaine (Lidocaine Patch) 1 patch TOPICAL QDP PRN PRN Reason: Pain Lisinopril (Lisinopril 20 Mg Tablet) 40 mg PO DAILY [facility] Last Admin: 01/01/22 08:26 Dose: 40 mg Metoprolol Succinate (Metoprolol Succinate 50 Mg Tab.Xl.24h) 100 mg PO QDAY [facility] Last Admin: 01/01/22 08:26 Dose: 100 mg Ondansetron HCl (Ondansetron 4 Mg/2 Ml Vial) 4 mg IV Q6HP PRN PRN Reason: Nausea And Vomiting Pantoprazole Sodium (Pantoprazole 40 Mg Tablet) 40 mg PO QAMAC [facility] Last Admin: 01/01/22 06:52 Dose: 40 mg Senna (Sennosides 1 Tablet) 2 tab PO HS [facility] Last Admin: 12/31/21 21:03 Dose: 2 tab Sodium Chloride (0.9 % Sodium Chloride 10 Ml Syringe) 10 ml IV Q8 [facility] Last Admin: 01/01/22 06:33 Dose: 10 ml Vitamin B Complex (Vitamin B Complex 1 Capsule) 1 cap PO QAM [facility] Last Admin: 01/01/22 08:27 Dose: 1 cap Vitamin D (Vitamin D3 25 Mcg Tablet) 50 mcg PO BID [facility] Last Admin: 01/01/22 08:26 Dose: 50 mcg Zinc Sulfate (Zinc Sulfate 50 Mg Capsule) 50 mg PO DAILY [facility] Last Admin: 01/01/22 08:26 Dose: 50 mg A/P Assessment and plan (1) Osteoporosis: Status: Chronic (2) Chronic pain: Status: Chronic (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 He will have his potassium aggressively repleted and he has been receiving normal saline for his hyponatremia. His BMP will be checked in the morning. Of note he has severe chest wall deformity and possibly underlying neuromuscular component resulting in chronic ventilatory failure. He has significant metabolic alkalosis with chronic respiratory acidosis. He may benefit from intermittent BiPAP. He would benefit from a pulmonary outpatient follow-up. 12/31: The patient has adrenal insufficiency and will continue to replete his electrolytes. We will trial BiPAP today for chronic ventilatory failure. Ongoing goals of care discussion for discharge with hospice. 01/01: The patient's electrolytes have improved. We did a trial of BiPAP yesterday however it did not make a difference to his CO2. The patient continues to be tachypneic and has respiratory rate was almost 38 this morning. His O2 sat was around 90% this morning. He will make a decision regarding hospice and may return to his facility once this is done. Time Spent With Patient Time: Total time spent is greater than 50% in coordination of care (as documented) at patient's floor/unit and/or counseling patient: Total time spent with greater than 50% in coordination of care (as documented) at patient's floor/unit and/or counseling patient:: 25 - 35 minutes
[2022-01-01] MEDS ORDERED: POLYETHYLENE GLYCOL 3350 17 GM PACKET PO PRN (11:10)
[2022-01-01] MEDS: SENNOSIDES 1 TABLET PO SCH (21:36)
[2022-01-02] MEDS: 0.9 % SODIUM CHLORIDE 10 ML SYRINGE IV SCH (05:42)
[2022-01-02 06:44] LABS: Blood Urea Nitrogen 9 mg/dL (8-23); Calcium 9.5 mg/dL (8.6-10.4); Carbon Dioxide 43 mmol/L (22-30); Chloride 79 mmol/L (96-108); Glomerular Filtration Rate 116; Glucose 116 mg/dL (70-105)
[2022-01-02] MEDS: PANTOPRAZOLE 40 MG TABLET PO SCH (07:41)
[2022-01-02] MEDS: HYDROCODONE/APAP 7.5/325MG TABLET PO PRN (07:42)
[2022-01-02] MEDS: LISINOPRIL 20 MG TABLET PO SCH (09:07)
[2022-01-02] MEDS: ASPIRIN 81 MG TAB.CHEW PO SCH (09:07)
[2022-01-02] MEDS: VITAMIN B COMPLEX 1 CAPSULE PO SCH (09:08)
[2022-01-02] MEDS: FLUDROCORTISONE 0.1 MG TABLET PO SCH (09:08)
[2022-01-02] MEDS: ZINC SULFATE 50 MG CAPSULE PO SCH (09:08)
[2022-01-02] MEDS: DUTASTERIDE 0.5 MG CAPSULE PO SCH (09:08)
[2022-01-02] MEDS: FERROUS SULFATE 325 MG TABLET PO SCH (09:08)
[2022-01-02] MEDS: ASCORBIC ACID 500 MG TABLET PO SCH ×2 (09:08→09:44)
[2022-01-02] MEDS: CELECOXIB 200 MG CAPSULE PO SCH (09:08)
[2022-01-02] MEDS: VITAMIN D3 25 MCG TABLET PO SCH (09:08)
[2022-01-02] MEDS: amLODIPine 10 MG TABLET PO SCH (09:08)
[2022-01-02] MEDS: METOPROLOL SUCCINATE 50 MG TAB.XL.24H PO SCH (09:08)
[2022-01-02] MEDS: ENOXAPARIN 40 MG/0.4 ML SYRINGE SQ SCH (09:09)
[2022-01-02] MEDS: DOCUSATE SODIUM 100 MG CAPSULE PO SCH (09:09)
--- NOTE | 2022-01-02 09:17 | Discharge Summary ---
Discharge Provider Provider IMPORTANT FOLLOW-UP INFORMATION FOR PCP: 1. Hospice f/u Patient information: Note initiated : 01/02/22 at 9:17 am Service Date, if different from initiated Date: [] Patient: Demarcus Bryan 76 y/o M admitted on 12/30/21 for shortness of breath. Chief Complaint: [Respiratory distress, weakness, electrolyte derangements] Date of admission: 12/30/21 18:33 Discharge date: 01/02/22 Primary care physician: Antolin Young Consults: 12/30/21 Consult to Physician [CONS] Stat Comment: Consulting Provider: Daria Hankins Reason For Exam: Physician to Consult Attending physician on discharge: Daria Hankins COURSE Hospital Course Hospital course: History of present illness: Mr. Bryan is a 76 year old M with a complex past medical history significant for severe scoliosis, emphysema, postpolio syndrome who is wheelchair dependent, and adrenal insufficiency who presents to the hospital with generalized weakness and irregular breathing pattern. The patient states that his breathing became worse after he had a fall in September. He has known severe chest wall deformity which is compounded by a known hiatal hernia. A chest x-ray was obtained which did not reveal any infiltrate, mass, or collapse of the lung. The patient is able to oxygenate and his O2 saturation is 98% on room air. Of note he was found to have severe electrolyte deficiencies including hypokalemia with a potassium less than 2 and hyponatremia with a sodium of 124. This was corrected in the ER. The hospitalist service was asked admit the patient for further management and evaluation. The patient has known and adrenal insufficiency and was found to have multiple electrolyte derangements. He will have his potassium aggressively repleted and he has been receiving normal saline for his hyponatremia. His BMP will be checked in the morning. Of note he has severe chest wall deformity and possibly underlying neuromuscular component resulting in chronic ventilatory failure. He has significant metabolic alkalosis with chronic respiratory acidosis. He may benefit from intermittent BiPAP. He would benefit from a pulmonary outpatient follow-up. 12/31: The patient has adrenal insufficiency and will continue to replete his electrolytes. We will trial BiPAP today for chronic ventilatory failure. Ongoing goals of care discussion for discharge with hospice. 01/01: The patient's electrolytes have improved. We did a trial of BiPAP yesterday however it did not make a difference to his CO2. The patient continues to be tachypneic and has respiratory rate was almost 38 this morning. His O2 sat was around 90% this morning. He will make a decision regarding hospice and may return to his facility once this is done. 01/02: Due to the patient's severe anatomical defects and likely underlying neuromuscular component, he has difficulty ventilating without improvement in his CO2 with positive pressure ventilation. He is chronically tachypneic and does not want further aggressive care. At this point, he will be discharged home and transition to hospice care. The patient is agreeable. Discharge diagnosis: Chronic ventilatory failure, hypokalemia, hyponatremia Time Spent with Patient Time attestation: Total time spent providing and/or coordinating discharge services: Time spent: Greater than 30 minutes EXAM Constitutional Vitals: Temp Pulse Resp BP Pulse Ox O2 Del Method O2 Flow Rate 99.1 F H 92 H 31 H 127/84 96 2 01/02/22 08:08 01/02/22 08:08 01/02/22 08:08 01/02/22 08:00 01/02/22 08:08 01/02/22 07:45 01/02/22 08:08 General appearance: cooperative Head Head exam: Present atraumatic, normal inspection and normocephalic Eye Eye exam: Present EOMI, normal appearance and PERRL; Absent conjunctival injection ENT ENT exam: Present normal exam; Absent mucous membranes dry Neck Neck exam: Present full ROM; Absent lymphadenopathy Respiratory Respiratory exam: Present normal respiratory exam and CTAB; Absent decreased breath sounds, respiratory distress or wheezes Cardiovascular Cardiovascular exam: Present normal rate and rhythm and RRR; Absent JVD GI/Abdominal GI/Abdominal exam: Present normal bowel sounds and soft; Absent diminished bowel sounds, distended, guarding, mass, rebound or tenderness Neurological Exam Neurological exam: Present alert, CN II-XII intact and oriented X3 Psychiatric Psychiatric exam: Present normal affect and normal mood Skin Skin exam: Present intact and warm; Absent erythema, pallor, petechiae or rash Discharge Data Data Completed and Pending Labs on day of discharge: Labs from last 24 hours 01/02/22 05:05 Sodium 129 L Potassium 3.6 Chloride 79 L Carbon Dioxide 43 H* Anion Gap 7.0 L BUN 9 Creatinine 0.4 L GFR Calculation 116 Glucose 116 H Calcium 9.5 Discharge Plan Patient/Caregiver Discharge Instructions Activity: increase activity as tolerated Diet: Regular Diet Instructions: Hyponatremia (GEN), Hypokalemia (GEN), Hospice Care (GEN) Prescriptions: Continued diclofenac sodium [Voltaren] 1 % gel See Rx Instructions TOPICAL .COMPLEX PRN (Reason: pain) Qty: 100 12RF Dose Instruction: Apply TOPICAL BID PRN; apply to single elbow, wrist or hand; gently massage into area; for hand includes palm/fingers/back of hand Rx Instructions: Apply TOPICAL BID PRN. (DME) wheelchair device See Dose Instructions .ROUTE .MEDSUPPLY Qty: 1 0RF Dose Instruction: As directed Rx Instructions: use daily for ambulation (DME) shower chair with adjustable legs Qty: 1 0RF Dose Instruction: As directed Rx Instructions: for use in shower to ensure proper hygiene is achieved esomeprazole magnesium 40 mg capsule,delayed release(DR/EC) See Dose Instructions PO .COMPLEX Qty: 90 3RF Dose Instruction: Take one capsule PO once daily Rx Instructions: Take one capsule PO once daily dutasteride 0.5 mg capsule 0.5 mg PO QDAY Qty: 90 3RF cholecalciferol (vitamin D3) 2,000 unit capsule 2,000 unit PO BID Qty: 180 3RF Rx Instructions: administer with meals celecoxib 200 mg capsule 200 mg PO QDAY Qty: 90 3RF amlodipine-benazepril 10-40 mg capsule 1 cap PO QDAY Qty: 90 3RF metoprolol succinate 100 mg tablet extended release 24 hr 100 mg PO QDAY Qty: 90 3RF trazodone 50 mg tablet 25 mg PO QHS Qty: 15 12RF hydrocodone-acetaminophen 7.5-325 mg tablet 1 tab PO Q6H PRN (Reason: pain) Qty: 120 0RF fludrocortisone 0.1 mg tablet 0.2 mg PO QDAY Qty: 180 0RF aspirin 81 mg tablet,delayed release (DR/EC) 81 mg PO QDAY ferrous sulfate 325 mg (65 mg iron) tablet 325 mg PO DAILY Rx Instructions: 325 mg PO .once daily (DME) Lift Chair Qty: 1 0RF Rx Instructions: use to be able to rise from seated position cyclobenzaprine 10 mg tablet 10 mg PO TID PRN (Reason: muscle spasm) Qty: 15 0RF sennosides [Senokot] 8.6 mg tablet 1 tab PO DAILY PRN (Reason: Constipation) Label Comments: [NO ORIGINAL SIG] methocarbamol 750 mg tablet 1 tab PO BID PRN (Reason: Pain) Label Comments: [NO ORIGINAL SIG] vitamin B complex Tablet 1 tab PO QAM Label Comments: [NO ORIGINAL SIG] Ocuvite Adult 50 Plus 250 mg (90 mg-160 mg) capsule 1 cap PO DAILY Label Comments: [NO ORIGINAL SIG] lidocaine [Lidocaine Pain Relief] 4 % Adhesive Patch,Medicated 1 patch TOPICAL QAM PRN (Reason: Pain) zinc sulfate 50 mg zinc (220 mg) Tablet 50 mg PO DAILY ascorbic acid (vitamin C) [Vitamin C] 500 mg Tablet 500 mg PO DAILY Follow Up Plan Follow up with: Antolin Young MD [Primary Care Provider] - (Follow up as needed) Patient Disposition: Hospice - Medical Facility Prognosis: Fair Rehab Potential: Fair I certify that the patient requires SNF services: Yes Overall status at discharge: patient is progressing back to baseline Discharge Orders: Discharge Order (Routine); Ordered 01/02/22 Ordered By: Daria Hankins
== END 2022-01-02 10:40 | disposition hospice, inpatient (51) | DRG 189 ==
LOC: ED 14:45 → ICU 18:33
PROVIDERS: ADMIT Student in an Organized Health Care Education/Training Program; ATTEND Student in an Organized Health Care Education/Training Program